=== PATIENT | male | born 1995 | race Caucasian/White ===

== ENCOUNTER 2017-12-03 23:37 | Emergency (ER) | payer SELFPAY ==
[2017-12-03 23:42] VITALS: Ht 177.8 cm
[2017-12-04] MEDS ORDERED: VOLTAREN75 MG PO (00:02)
[2017-12-04] MEDS ORDERED: VIBRAMYCIN 100100 MG PO (00:02)
[2017-12-04 00:26] VITALS: BP 132/86
== END 2017-12-04 00:27 | disposition home or self-care (01) ==
LOC: D.ER 23:37
DX: L03.115 Cellulitis of right lower limb (principal); J02.9 Acute pharyngitis, unspecified; F17.200 Nicotine dependence, unspecified, uncomplicated

== ENCOUNTER 2017-12-07 11:06 | Emergency (ER) | payer SELFPAY ==
[~2017-12-07] VITALS: Ht 177.8 cm; Wt 87.7 kg
[~2017-12-07 11:06] MED LIST: VIBRAMYCIN 100100 MG PO; VOLTAREN75 MG PO
[2017-12-07 11:14] VITALS: Ht 177.8 cm; Wt 87.7 kg
[2017-12-07 13:52] VITALS: BP 109/67
== END 2017-12-07 13:56 | disposition home or self-care (01) ==
LOC: D.ER 11:06
DX: L02.611 Cutaneous abscess of right foot (principal); F17.200 Nicotine dependence, unspecified, uncomplicated